=== PATIENT | female | born 1990 | race Caucasian/White ===

== ENCOUNTER 2018-02-15 16:06 | Emergency (ER) | END 2018-02-15 19:36 | disposition home or self-care (01) ==

== ENCOUNTER 2018-05-30 11:11 | Outpatient (CLI) | END 2018-05-30 13:10 | disposition home or self-care (01) ==

== ENCOUNTER 2018-08-07 12:34 | Inpatient (IN) | payer OTHER ==
[~2018-08-07] VITALS: Ht 160 cm; Wt 81.5 kg
[~2018-08-07 12:34] MED LIST: DOCO200C5 PO; FOLI0.4T2 PO
[2018-08-07] MEDS ORDERED: PREN-93 PO (12:56)
[2018-08-07 12:57] VITALS: BP 115/59; PULSE 96; RESP 18; Ht 160 cm; Wt 81.5 kg
--- NOTE | 2018-08-07 14:22 | TRIAGE ---
OB Triage Datetime Report Generated by CPN: 08/07/2018 14:21 Datetime: 08/07/2018 12:54 Assessment Type: Triage Maternal Assessment Level of Consciousness: Fully Conscious DTR's/Clonus: DTRs 2+; No Clonus Headache: Denies Blurred Vision: No Respiratory Effort: Unlabored; Regular Rhythm; Equal Expansion Breath Sounds, Left: Clear and Equal Breath Sounds, Right: Clear and Equal Nausea/Vomiting: Denies RUQ Epigastric Pain: Denies Lower Extremities Edema: None Degree: None Upper Extremities Edema: None Degree: None Facial Edema: None Fall Risk Assessment History of Falling: (0) No Secondary Diagnosis: (0) No Ambulatory Aid: (0) Bedrest/Nurse Assist IV Therapy: (0) No Gait: (0) Normal/Bedrest/Immobile Mental Status: (0) Oriented to Own Ability Fall Score: 0 Fall Risk Score Definition: No Risk: No action required Datetime: 08/07/2018 12:52 Time of Arrival: 08/07/2018 12:23 EGA: 38.4 Arrived By: Ambulatory Arrived From: Home Chief Complaint: PT. C/O LEAKING AND DFM Movement: Decreased Contractions: Denies/Absent Rupture of Membranes: Denies Vaginal Bleeding: None Vaginal Discharge: Denies Recent Sexual Intercouse: Denies Abdominal Trauma: Not Applicable Patient Complaints: None Time Provider Notified: 08/07/2018 14:19 Provider Notified: NANCY Initial Plan: NST/BPP/EFW Datetime: 08/07/2018 12:49 Labor Evaluation Monitor Mode: External Heart Rate Monitor Mode: External US Datetime: 05/30/2018 11:32 EGA: 28.5
[2018-08-07] MEDS ORDERED: OXYTOCIN 30 UNITS/LR 500 ML IV SCH ×3 (14:30)
[2018-08-07] MEDS ORDERED: CARBOPROST 250 MCG INJ IM PRN (14:30)
[2018-08-07] MEDS ORDERED: BUTORPHANOL 2 MG INJ IV PRN (14:30)
[2018-08-07] MEDS ORDERED: MISOPROSTOL 200 MCG TAB PR PRN (14:30)
[2018-08-07] MEDS ORDERED: METHYLERGONOVINE 0.2 MG INJ IM PRN (14:30)
[2018-08-07] MEDS ORDERED: IBUPROFEN 600 MG TAB PO PRN (14:30)
[2018-08-07] MEDS ORDERED: LIDOCAINE 1% (MPF) 30 ML INJ INJ PRN (14:30)
[2018-08-07] MEDS ORDERED: OXYTOCIN 30 UNITS/LR 500 ML IV PRN (14:30)
[2018-08-07] MEDS: LACTATED RINGER'S 1,000 ML IV SCH ×2 (15:31→21:11)
[2018-08-08] MEDS: LACTATED RINGER'S 1,000 ML IV SCH ×4 (00:29→23:17)
--- NOTE | 2018-08-08 00:48 | PREAC ---
Date/Time of Note Date/Time of Note DATE: 08/08/18 TIME: 00:47 Anesthesia Eval and Record Evaluation Time Pre-Procedure Interview DATE: 08/08/18 TIME: 00:47 Age 28 Sex female NPO: 8 hrs Preoperative diagnosis iup at 38 weeks Planned procedure labor epidural Past Medical History Past Medical History: Includes GI: Obesity Surgery & Anesthesia Issues No known issue Meds Anticoagulation: No Beta Jo within 24 hr: No Reason Beta Jo not given: Pt. not on B-Jo Reported Medications Vit No.124/Iron/FA ( Vitamin Tablet) 1 Each Tablet, 1 EACH PO DAILY, TAB 08/07/18 Docosahexanoic Acid ( DHA) 200 Mg Capsule, 200 MG PO, CAP 05/30/18 Folic Acid* (Folic Acid*) 0.4 Mg Tablet, 0.4 MG PO DAILY, TAB 05/30/18 Current Medications Lactated Ringer's 1,000 ml @ 125 mls/hr Q8H IV Last administered on 08/08/18at 00:29; Admin Dose 125 MLS/HR; Start 08/07/18 at 14:30 Butorphanol Tartrate (Stadol) 2 mg Q2H PRN IV PAIN; Start 08/07/18 at 14:30 Lidocaine (Xylocaine 1% (Mpf)) 30 ml ONCE PRN INJ PAIN; Start 08/07/18 at 14:30 Oxytocin/Lactated Ringer's 500 ml @ 500 mls/hr ONCE POST IV ; Start 08/07/18 at 14:30 Oxytocin/Lactated Ringer's 500 ml @ 125 mls/hr POST IV ; Start 08/07/18 at 14:30 Ibuprofen (Motrin) 600 mg ONCE PRN PO PAIN; Start 08/07/18 at 14:30 Oxytocin/Lactated Ringer's 500 ml @ 0 mls/hr ONCE PRN IV BLEE; Start 08/07/18 at 14:30 Methylergonovine Maleate (Methergine) 0.2 mg ONCE PRN IM BLEEDING; Start 08/07 at 14:30 Carboprost Tromethamine (Hemabate) 250 mcg ONCE PRN IM BLEEDING; Start 08/07/18 at 14:30 Misoprostol (Cytotec) 1,000 mcg ONCE PRN DC BLEEDING; Start 08/07/18 at 14:30 Oxytocin/Lactated Ringer's 500 ml @ 0 mls/hr FOR INDUCTION IV Last administered on 08/07/18at 15:40; Admin Dose 1 MLS/HR; Start 08/07/18 at 14:30 Meds reviewed: Yes Allergies Coded Allergies: No Known Allergy (Unverified , 02/15/18) Allergies Reviewed: Yes Labs/Studies Labs Reviewed: Reviewed by anesthesiologist Result Diagram: 08/07/18 1445 Laboratory Tests 08/07/18 14:45 Blood Bank Test 08/07/18 14:45 Blood Type O POSITIVE Rh Immune Globulin Candidate NO test: Positive Pre-procedure Exam Last vitals Vital Signs Date Temp Pulse Resp B/P (MAP) Pulse Ox O2 O2 Flow FiO2 Time Delivery Rate 08/07/18 98.5 96 18 115/59 Room Air 12:57 (77) Airway: Adequate mouth opening, Adequate thyromental dist Mallampati: Mallampati II Teeth: Normal Lung: Normal Heart: Normal ASA Physical Status ASA physical status: 2 Emergency: None Planned Anesthetic Neuraxial: Epidural Planned Pain Management Parenteral pain med Pre-operative Attestations Prior to commencing anesthesia and surgery, the patient was re-evaluated, there was verification of: *The patient's identity *The results of appropriate recent lab work and preoperative vital signs *The above evaluation not changing prior to induction *Anesthetic plan, risk benefits, alternative and complications discussed with patient/family; questions answered; patient/family understands, accepts and wishes to proceed. NANDA YODER Aug 08, 2018 00:48
[2018-08-08] MEDS ORDERED: FENTAnyl 2MCG/ML-ROPIV 0.2% 100 ML ONE (00:50)
[2018-08-08] MEDS ORDERED: NALOXONE (0.4 MG/ML) INJ IV PRN (01:00)
[2018-08-08] MEDS ORDERED: ONDANSETRON 4 MG INJ IV PRN (01:00)
[2018-08-08] MEDS ORDERED: DIPHENHYDRAMINE 50 MG INJ IV PRN (01:00)
[2018-08-08] MEDS: FENTAnyl 2MCG/ML-ROPIV 0.2% 100 ML BAG EPI SCH ×2 (01:36→09:34)
--- NOTE | 2018-08-08 07:05 | HP ---
Date/Time of Note Date/Time of Note DATE: 08/08/18 TIME: 06:53 OB - History Hx of Present Free Text/Dictation 28y.0 primigravida was sent to triage for evaluation for DFM for 3days on 08/07/18 at 38w3d found to have MELLISSA 4.6 with some hx of leaking. her course was unremarkable. GBS neg EFW 3092gm admitted for induction of laboe with pitocin. Chief Complaint: IOL for oligohydramnios Estimated Due Date: Aug 17, 2018 : 1 Para: 0 Spontaneous : 0 Therapeutic : 0 Care: Good Care Ultrasounds: Normal mid trimester US Obstetrical Complications: None Medical Complications: None Past Family/Social History * Past Medical none surg none OB none FH mom HTN GP (m) DM Blood Type: O+ Rubella: immune RPR/VDRL: Negative GBS Status: Negative HBsAG: Negative OB Admission Exam Vital Signs Vital Signs Vital Signs Date Temp Pulse Resp B/P (MAP) Pulse Ox O2 O2 Flow FiO2 Time Delivery Rate 08/07/18 98.5 96 18 115/59 Room Air 12:57 (77) Physical Exam HEENT: WNL Heart: Rhythm Normal Lungs: Clear, Equal Abdomen: WNL Extremities: Normal Reflexes: Normal Cervical Dilatation: 1cm Effacement: 25% Station: -3 Membranes: Ruptured Amniotic Fluid: Other Heart Rate: 140's Accelerations: Accelerations Present Decelerations: No Decelerations Varibility: Moderate Contractions on Admission: >10 Minutes Apart Intensity: Mild Last 72 hours Lab Results CBC & BMP 08/07/18 14:45 OB Assessment/Plan Reason for admission: other (oligohydramnios) Other Assessment: IUP 38w4d Plan: Induction Induction Method: per Pitocin Protocol INGA CRUZ MD Aug 08, 2018 07:04
--- NOTE | 2018-08-08 07:09 | QN ---
Documentation Comment reported several variable down to 80 for one min VE 3/70/-2 with bulging bag ARM clear IUPC inserted for amnioinfusion INGA CRUZ MD Aug 08, 2018 07:09
[2018-08-08] MEDS ORDERED: MINERAL OIL LIGHT 10 ML VIAL ONE (15:42)
[2018-08-08] MEDS ORDERED: MINERAL OIL LIGHT 10 ML VIAL TOP ONE (19:00)
[2018-08-08] MEDS ORDERED: AMPICILLIN 2 GM/NS (PMX) 100 ML IVPB ONE (19:00)
[2018-08-08] MEDS: AMPICILLIN 2 GM/NS (PMX) 100 ML IVPB SCH (19:31)
[2018-08-08] MEDS ORDERED: ACETAMINOPHEN 325 MG TAB PO PRN (21:00)
[2018-08-08 21:15] VITALS: BP 133/64; PULSE 94; RESP 19
[2018-08-08] MEDS ORDERED: OXYCODONE/ASPIRIN (4.88/325) TAB PO PRN (21:30)
[2018-08-08] MEDS ORDERED: MISOPROSTOL 200 MCG TAB PR PRN (21:30)
[2018-08-08] MEDS ORDERED: ZOLPIDEM 5 MG TAB PO PRN (21:30)
[2018-08-08] MEDS ORDERED: CARBOPROST 250 MCG INJ IM PRN (21:30)
[2018-08-08] MEDS ORDERED: METHYLERGONOVINE 0.2 MG INJ IM PRN (21:30)
[2018-08-08] MEDS ORDERED: OXYTOCIN 30 UNITS/LR 500 ML IV PRN (21:30)
--- NOTE | 2018-08-08 23:16 | PAC ---
Date/Time of Note Date/Time of Note DATE: 08/08/18 TIME: 23:15 Post-Anesthesia Notes Post-Anesthesia Note Last documented vital signs Vital Signs Date Temp Pulse Resp B/P (MAP) Pulse Ox O2 O2 Flow FiO2 Time Delivery Rate 08/08/18 98.7 94 19 133/64 Room Air 21:15 (87) Activity: WNL Respiratory function: WNL Cardiovascular function: WNL Mental status: Baseline Pain reasonably controlled: Yes Hydration appropriate: Yes Nausea/Vomiting absent: Yes NANDA OYDER Aug 08, 2018 23:16
[2018-08-09] MEDS: IBUPROFEN 600 MG TAB PO SCH ×4 (00:38→17:33)
[2018-08-09] MEDS: LANOLIN HPA 1 PKT TOP PRN (00:38)
[2018-08-09] MEDS: BENZOCAINE 20% 56 ML SPRAY TOP PRN (00:39)
[2018-08-09] MEDS: WITCH HAZEL/GLYCERIN PAD PR PRN (00:39)
[2018-08-09] MEDS: AMPICILLIN 2 GM/NS (PMX) 100 ML IVPB SCH ×2 (01:22→07:09)
[2018-08-09 04:00] VITALS: BP 129/61; PULSE 85; RESP 20
[2018-08-09 08:10] VITALS: BP 107/57; PULSE 105; RESP 18
[2018-08-09] MEDS: SENNA/DOCUSATE NA (8.6MG/50MG) TAB PO SCH ×2 (09:24→22:33)
[2018-08-09] MEDS: LACTATED RINGER'S 1,000 ML IV SCH ×3 (11:49→23:00)
[2018-08-09 11:50] VITALS: BP 103/64; PULSE 94; RESP 16
[2018-08-09 16:07] VITALS: BP 105/71; PULSE 96; RESP 20
--- NOTE | 2018-08-09 19:59 | LDN ---
Date/Time of Note Date/Time of Note DATE: 08/09/18 TIME: 19:59 Mother & Baby Disposition Disposition Mom & Baby to Maternity; Good: Yes Mom transferred to: Other Baby to NICU: No INGA CRUZ MD Aug 09, 2018 19:59
--- NOTE | 2018-08-09 20:02 | QN ---
Documentation Comment no c/0 had b.m vss febrile fundus firm lochia min calf neg for tenderness A stable s/pNSVD P discharge home in am INGA CRUZ MD Aug 09, 2018 20:02
[2018-08-09 20:30] VITALS: BP 110/75; PULSE 106; RESP 20
[2018-08-09] MEDS: OXYCODONE/ASPIRIN (4.88/325) TAB PO PRN (22:34)
[2018-08-10 04:00] VITALS: BP 111/55; PULSE 111; RESP 20
[2018-08-10] MEDS: OXYCODONE/ASPIRIN (4.88/325) TAB PO PRN (04:29)
[2018-08-10] MEDS: IBUPROFEN 600 MG TAB PO SCH ×3 (06:00→11:53)
[2018-08-10] MEDS: LACTATED RINGER'S 1,000 ML IV SCH ×2 (07:00→15:00)
[2018-08-10 08:30] VITALS: BP 119/81; PULSE 102; RESP 18
[2018-08-10] MEDS: WITCH HAZEL/GLYCERIN PAD PR PRN (08:48)
[2018-08-10] MEDS: LANOLIN HPA 1 PKT TOP PRN (08:48)
[2018-08-10] MEDS: SENNA/DOCUSATE NA (8.6MG/50MG) TAB PO SCH (08:48)
[2018-08-10] MEDS: BENZOCAINE 20% 56 ML SPRAY TOP PRN (08:48)
[2018-08-10] MEDS ORDERED: DIPHTH/TET/ACEL PERTUSS (ADULT) 0.5 ML VIAL IM* ONE (09:00)
--- NOTE | 2018-08-10 14:20 | DS ---
Date/Time of Note Date/Time of Note DATE: 08/10/18 TIME: 14:15 Obstetrical Discharge Record Final Diagnosis Final Diagnosis: Term delivered Other Final Diagnosis oligohydramnios Vaginal Delivery Obstetrical Delivery: Episiotomy, Repaired Complications Other Induction: Yes Rupture of Membranes: No Condition on Discharge Physical Assessment Last Vitals: vss afebrile Voiding: Yes Bowel Movement: Yes Breast: Soft, non-tender Fundus: Firm Episiotomy: na Calf Tenderness: No Patient Condition: Stable INGA CRUZ MD Aug 10, 2018 14:20
--- NOTE | 2018-08-10 14:22 | PD.PPDC ---
[employer]PERATIONS SUPERVISOR Discharge Instruction Diagnosis [id number] Final Diagnosis: Wqeis0e s/pNSVD Condition [id number] Patient Condition: Bbikp6j Stable Diet Ycvey3Am Diet: Pvhst0k Resume Regular Diet Activity/Restrictions [id number] Activity: Txnex7o May Shower [id number] Restrictions: Mucnq0z No Lifting No Sexual Activity Nothing in the Vagina No [place] No Tampons, douche Follow-up Follow-up with Physician: 6, Week/Weeks Return to clinic for [id number] [employer]TAIN Instructions: Lxloj0s Fever greater than 101 Chills Worsening abdominal pain Excessive Vaginal Bleeding More than 2 pads per hour Unable to tolerate diet Tofnq0Sf OB Instructions: Hjxrs1z Breast Tenderness Depression Blurried Vision Headache INGA CRUZ MD Aug 10, 2018 14:22
--- NOTE | 2018-09-09 10:22 | LDN ---
Date/Time of Note Date/Time of Note DATE: 08/08/18 TIME: 20:44 Delivery Summary vaccum assisted vaginal delivery of normal female with terminal mec Weeks of Gestation 38w2d Assisted Vaginal Delivery: Vacuum Placenta Delivered: Spontaneously Indication for episiotomy expected laceration Perineal laceration: 0 Laceration repair: 00 ch gut .l Anesthesia type: Epidural Estimated blood loss: 300 Sponge & Needle done & correct: Yes All needle counts correct: Yes Any foreign bodies felt in the: No Delivery Information Sex Sex: female Apgars 1 Minute: 4 5 Minute: 8 Suctioning Nose & mouth suctioned at lyla: Yes Delee suction performed: Yes Umbilical Cord Umbilical cord with: 3 Vessels Cord presentations: nuchal cord Mother & Baby Disposition Disposition Mom & Baby to Maternity; Good: Yes Mom transferred to: Other Baby to NICU: No () INGA CRUZ MD Aug 08, 2018 21:00
== END 2018-08-10 16:10 | disposition home or self-care (01) | DRG 807 ==
LOC: OBT 12:34 → L-D 12:35 → OBT 14:16 → L-D 14:16 → PP1 08-08 21:13
PROVIDERS: ADMIT Obstetrics & Gynecology; ATTEND Obstetrics & Gynecology
PROC: 10D07Z6 Extraction of Products of Conception, Vacuum, Via Natural or Artificial Opening (ICD-10-PCS; principal; 2018-08-08)
DX: O69.81X0 Labor and delivery complicated by cord around neck, without compression, not applicable or unspecified (principal); Z37.0 Single live birth; Z3A.38 38 weeks gestation of pregnancy
CPT/HCPCS: 62319; 76815; 76818; 81001; 85025; 85610; 85730; 86592; 86900; 86901; 87086; 87340; 99464; G0463; J0290; J1200; J2590; J3010; J7120

== ENCOUNTER 2018-08-12 21:22 | Emergency (ER) | payer OTHER ==
[~2018-08-12] VITALS: Ht 160 cm; Wt 80.5 kg
[~2018-08-12 21:22] MED LIST changes: +PREN-93 PO
[2018-08-12 21:37] VITALS: Ht 160 cm; Wt 80.5 kg
[2018-08-12] MEDS ORDERED: KETOROLAC 30 MG INJ IV STA (22:33)
[2018-08-12] MEDS ORDERED: FUROSEMIDE 40 MG INJ IV ONE (23:00)
[2018-08-12] MEDS ORDERED: CIPR500T4 PO (23:43)
[2018-08-12] MEDS ORDERED: PHEN-538 PO (23:43)
[2018-08-13] MEDS ORDERED: CEFTRIAXONE 1 GM/50 ML (PMX) 50 ML IVPB ONE
--- NOTE | 2018-08-13 00:14 | ERD ---
ER Documentation Chief Complaint Chief Complaint DYSURIA, BLE EDEMA, 4 DAYS POST HPI Patient is a 28-year-old female with no medical problems who presents with vaginal pain. She said that she has pain with urination. She just recently delivered vaginally on August 08. She has bilateral lower feet swelling. She feels urinary hesitancy. She says that she cannot walk because of the pain. She did not have any problems during other than UTI. Upon review of old medical records this is the patient's third visit to the ER since February 2018. ROS All systems reviewed and are negative except as per history of present illness. Medications Home Meds Active Scripts Phenazopyridine Hcl* (Pyridium*) 200 Mg Tab, 200 MG PO TID PRN for URINARY PAIN, #6 TAB Prov:VIOLET REED MD 08/12/18 Ciprofloxacin Hcl* (Ciprofloxacin Hcl*) 500 Mg Tablet, 500 MG PO BID for 7 Days, TAB Prov:VIOLET REED MD 08/12/18 Reported Medications Vit No.124/Iron/FA ( Vitamin Tablet) 1 Each Tablet, 1 EACH PO DAILY, TAB 08/07/18 Docosahexanoic Acid ( DHA) 200 Mg Capsule, 200 MG PO, CAP 05/30/18 Folic Acid* (Folic Acid*) 0.4 Mg Tablet, 0.4 MG PO DAILY, TAB 05/30/18 Allergies Allergies: Coded Allergies: No Known Allergy (Unverified , 02/15/18) PMhx/Soc Medical and Surgical Hx: pt denies Medical Hx Hx Alcohol Use: No Hx Substance Use: No Hx Tobacco Use: No Smoking Status: Never smoker FmHx Family History: No diabetes Physical Exam Vitals Vital Signs Date Temp Pulse Resp B/P (MAP) Pulse Ox O2 O2 Flow FiO2 Time Delivery Rate 08/12/18 98.8 122 16 119/62 99 21:37 (81) Physical Exam Const: No acute distress Head: Atraumatic Eyes: Normal Conjunctiva ENT: Normal External Ears, Nose and Mouth. Neck: Full range of motion. No meningismus. Resp: Clear to auscultation bilaterally Cardio: Regular rate and rhythm, no murmurs Abd: Soft, non tender, non distended. Normal bowel sounds Skin: No petechiae or rashes Back: No midline or flank tenderness Ext: No cyanosis, or edema Neur: Awake and alert : No rash or active bleeding Result Diagram: 08/12/18225008/12/182250 Results 24 hrs Laboratory Tests Test 08/12/18 22:51 08/12/18 23:05 White Blood Count 13.9 10^3/ul Red Blood Count 4.09 10^6/ul Hemoglobin 11.4 g/dl Hematocrit 35.4 % Mean Corpuscular Volume 86.6 fl Mean Corpuscular Hemoglobin 27.9 pg Mean Corpuscular Hemoglobin Concent 32.2 g/dl Red Cell Distribution Width 14.3 % Platelet Count 283 10^3/UL Mean Platelet Volume 10.5 fl Immature Granulocytes % 0.800 % Neutrophils % 71.4 % Lymphocytes % 19.3 % Monocytes % 5.9 % Eosinophils % 2.2 % Basophils % 0.4 % Nucleated Red Blood Cells % 0.0 /100WBC Immature Granulocytes # 0.110 10^3/ul Neutrophils # 10.0 10^3/ul Lymphocytes # 2.7 10^3/ul Monocytes # 0.8 10^3/ul Eosinophils # 0.3 10^3/ul Basophils # 0.1 10^3/ul Nucleated Red Blood Cells # 0.0 10^3/ul Sodium Level 141 mmol/L Potassium Level 4.2 mmol/L Chloride Level 101 mmol/L Carbon Dioxide Level 26 mmol/L Anion Gap 14 Blood Urea Nitrogen 11 mg/dl Creatinine 0.45 mg/dl Est Glomerular Filtrat Rate mL/min > 60 mL/min Glucose Level 100 mg/dl Calcium Level 9.7 mg/dl Total Bilirubin 0.0 mg/dl Direct Bilirubin 0.00 mg/dl Indirect Bilirubin 0.0 mg/dl Aspartate Amino Transf (AST/SGOT) 31 IU/L Alanine Aminotransferase (ALT/SGPT) 19 IU/L Alkaline Phosphatase 123 IU/L Troponin I < 0.012 ng/ml Total Protein 7.2 g/dl Albumin 3.6 g/dl Globulin 3.60 g/dl Albumin/Globulin Ratio 1.00 Urine Color YELLOW Urine Clarity SLIGHTLY CLOUDY Urine pH 7.0 Urine Specific [place] 1.006 Urine Ketones NEGATIVE mg/dL Urine Nitrite NEGATIVE mg/dL Urine Bilirubin NEGATIVE mg/dL Urine Urobilinogen NEGATIVE mg/dL Urine Leukocyte Esterase 3+ Dhruv/ul Urine Microscopic RBC > 182 /HPF Urine Microscopic WBC 135 /HPF Urine Squamous Epithelial Cells FEW /HPF Urine Bacteria MODERATE /HPF Urine Hemoglobin 3+ mg/dL Urine Glucose NEGATIVE mg/dL Urine Total Protein NEGATIVE mg/dl Current Medications Medications Dose Sig/Abner Start Time Status Last (Trade) Ordered Route PRN Stop Time Admin Dose Reason Admin Furosemide 40 mg ONCE ONCE 08/12/18 DC 08/12/18 (Lasix) IV 23:00 22:50 08/12/18 23:01 Ketorolac 30 mg ONCE STAT 08/12/18 DC 08/12/18 Tromethamine IV 22:33 22:50 (Toradol) 08/12/18 22:35 Ceftriaxone 50 ml @ ONCE ONCE 08/13/18 08/12/18 Sodium 100 mls/hr IVPB 00:00 23:53 08/13/18 00:29 Procedures/MDM Patient is a 28-year-old female who presents with vaginal pain and dysuria. The patient was found to have pyelonephritis. She was given ceftriaxone 1 g IV. She will be given Cipro twice a day for 7 days but I believe outpatient management is appropriate. She is afebrile. I doubt sepsis. I believe outpatient management is appropriate but the patient will need close follow-up with her primary doctor within 24-48 hours. She can return for worsening symptoms. There is mild edema in the feet bilaterally but no pulmonary edema and I doubt cardiomyopathy. Departure Diagnosis: Primary Impression: Pyelonephritis Additional Impression: Dysuria Condition: Fair Patient Instructions: Dysuria, Pyelonephritis, Female (Adult) Referrals: Dr. Aquino Additional Instructions: Call your primary care doctor TOMORROW for an appointment during the next 1-2 days.See the doctor sooner or return here if your condition worsens before your appointment time. VIOLET REED MD Aug 13, 2018 00:14
[2018-08-13 00:28] VITALS: BP 113/70; PULSE 69; RESP 19
== END 2018-08-13 00:34 | disposition home or self-care (01) ==
LOC: E/R 21:22
DX: O86.21 Infection of kidney following delivery (principal); B96.89 Other specified bacterial agents as the cause of diseases classified elsewhere; R07.9 Chest pain, unspecified
CPT/HCPCS: 36415; 71045; 80053; 81001; 84484; 85025; 93005; 96374; 96375; J0696; J1885; J1940; Z7502